=== PATIENT | female | born 1965 | race Hispanic/Latino ===

== ENCOUNTER → 2017-06-15 | Outpatient (CLI) | payer OTHER ==
--- NOTE | 2017-06-20 16:43 | REP ---
DIAGNOSTIC MAMMOGRAM LEFT BREAST WITH LEFT BREAST ULTRASOUND: Unilateral diagnostic mammogram left breast performed. Multiple images obtained in the MLO, ML and CC projections. There are reportedly two palpable abnormalities, one in the upper outer quadrant of the left breast and the other inferiorly in the region of 6-o'clock. They are marked on the skin with triangular skin markers. Spot compression views are performed. Comparison made with prior study of 09/27/2013 from [facility]. There is mild to moderate scattered fibroglandular tissue in the left breast. No discrete mass is seen mammographically. No clustered microcalcifications are seen. Real-time sonographic evaluation of the left breast performed in the region of the palpable abnormalities between 1-o'clock and 6-o'clock regions. There is scattered dense fibroglandular tissue. No cystic or solid nodule is seen in these two regions. In the left axilla there is an oval hyperechoic nodular areas measuring 9 x 6 x 11 mm, probably representing a focal small lipoma or lymph node. This appears benign. IMPRESSION: ACR 2 benign. No mass or clustered microcalcifications seen in the left breast. There is no mammographic or sonographic evidence of a mass at the site of the reported palpable abnormalities in the left breast, at two locations in the upper outer quadrant and inferiorly. Clinical correlation and followup is recommended. It should be noted the patient is also due for screening mammogram of the right breast. BI-RADS/ACR category 2 mammogram. Benign finding(s). Routine annual screening mammography (for women over age 40). This mammogram was interpreted with the aid of an FDA-approved computer-aided detection system. The patient states she/he had a clinical breast exam in May 2017. The patient letter being requested is M2. Signed by Percy Woodard MD 06/20/2017 05:10 P
== END ==
LOC: M RAD 14:56
PROVIDERS: ATTEND Family Medicine
DX: N63.0 Unspecified lump in unspecified breast (principal)

== ENCOUNTER 2017-12-25 17:25 | Emergency (ER) | payer OTHER ==
[2017-12-25] MEDS: LIDOCAINE 2% MDV 20 ML VIAL SC (21:15)
[2017-12-25] MEDS: ADACEL/BOOSTRIX VACCINE (DIPHTH/PERTUSS/ACELL/TETANUS)0.5ML SYR (90715) IM (21:30)
== END 2017-12-25 22:23 | disposition home or self-care (01) ==
LOC: M ED 17:25
DX: S61.315A Laceration without foreign body of left ring finger with damage to nail, initial encounter (principal); W22.8XXA Striking against or struck by other objects, initial encounter; Y92.002 Bathroom of unspecified non-institutional (private) residence as the place of occurrence of the external cause; E03.9 Hypothyroidism, unspecified; Z79.890 Hormone replacement therapy
CPT/HCPCS: 90715

== ENCOUNTER → 2020-01-06 | Outpatient (CLI) | payer OTHER ==
[~2020-01-06] MED LIST: AUGM500T34 PO; SYNT88TA2
--- NOTE | 2020-01-06 17:29 | REPMRS ---
Patient History The patient states she had a clinical breast exam in January 2019.Family history of endometrial cancer in paternal grandmother. Taking unspecified hormones for 23 years. 3D TOMOSYNTHESIS WAS PERFORMED. The J Carlos Daniels lifetime risk for breast cancer is 8.6%. SUSY Chanle. Digital Woman Screen Mammo: January 06, 2020 - Exam #: [id number] Bilateral CC and MLO view(s) were taken. Technologist: Brittany Arshad, Technologist Prior study comparison: June 15, 2017, left breast digital mammo diagnostic unilateral, performed at [facility]. FINDINGS: There are scattered fibroglandular densities. There has been no change in the appearance of the mammogram from the prior studies. There is a mild amount of residual fibroglandular tissue which is fairly symmetric. There is no interval development of dominant mass, architectural distortion, or clustered microcalcification suggestive of malignancy. Assessment: BI-RADS/ACR category 1 mammogram. Negative Mammogram. Recommendation Routine screening mammogram in 1 year (for women over age 40). This mammogram was interpreted with the aid of an FDA-approved computer-aided dectection system. Electronically Signed By: Percy Woodard MD 01/06/20 [id number]
== END ==
LOC: M WHC 14:56
PROVIDERS: ATTEND Family Medicine
DX: Z12.31 Encounter for screening mammogram for malignant neoplasm of breast (principal); Z80.49 Family history of malignant neoplasm of other genital organs

== ENCOUNTER 2020-03-02 09:00 | Day surgery (SDC) | payer OTHER ==
[2020-03-02] MEDS ORDERED: propofoL 500 MG/50 ML VIAL As Ordered ONE (09:55)
[2020-03-02] MEDS ORDERED: LIDOCAINE 2% 100MG/5ML SDV (FOR ANES.) As Ordered ONE (09:55)
--- NOTE | 2020-04-08 11:27 | ROOR ---
Patient Name: Cammie Wynn Procedure Date: 03/02/2020 9:55 AM Date of : 1965 Age: 54 Room: [facility] Gender: Female Note Status: Log Turner Override Procedure: Total Colonoscopy to Cecum Indications: Screening for colorectal malignant neoplasm Providers: Jethro Nava MD Referring MD: BRIAN TORRES MD Requesting Provider: Medicines: Monitored Anesthesia Care Complications: No immediate complications. Procedure: Pre-Anesthesia Assessment: - The heart rate, respiratory rate, oxygen saturations, blood pressure, adequacy of pulmonary ventilation, and response to care were monitored throughout the procedure. The Colonoscope was introduced through the anus and advanced to the cecum, identified by appendiceal orifice and ileocecal valve. The colonoscopy was performed without difficulty. The patient tolerated the procedure well. The quality of the bowel preparation was excellent. Findings: The perianal and digital rectal examinations were normal. Non-bleeding internal hemorrhoids were found during retroflexion. The hemorrhoids were small and Grade I (internal hemorrhoids that do not prolapse). No other significant abnormalities were identified in a careful examination of the remainder of the colon. The exam was otherwise without abnormality on direct and retroflexion views. Impression: - Non-bleeding internal hemorrhoids. - The examination was otherwise normal on direct and retroflexion views. - No specimens collected. - The exam was otherwise normal to the cecum. Recommendation: - Patient has a contact number available for emergencies. The signs and symptoms of potential delayed complications were discussed with the patient. Return to normal activities tomorrow. Written discharge instructions were provided to the patient. - High fiber diet. - Discharge patient to home. - Continue present medications. - Repeat colonoscopy in 10 years for screening purposes. - Return to referring physician. - The findings and recommendations were discussed with the patient. Jethro Nava MD Jethro Nava MD 03/02/2020 10:11:38 AM Number of Addenda: 0 Note Initiated On: 03/02/2020 9:55 AM Estimated Blood Loss: Estimated blood loss: none.
== END 2020-03-02 10:35 | disposition home or self-care (01) ==
LOC: M OPP 09:00
PROVIDERS: ATTEND Internal Medicine Gastroenterology
DX: Z12.11 Encounter for screening for malignant neoplasm of colon (principal); K64.0 First degree hemorrhoids; Z79.899 Other long term (current) drug therapy

== ENCOUNTER → 2020-11-04 | Outpatient (REF) | payer OTHER ==
[2020-11-04 17:22] LABS: BASO % 0.2 % (0.0-1.0); EOS # 0.3 10^3/uL (0.0-0.5); EOS % 3.1 % (0.0-3.0); HEMATOCRIT 45.8 % (36.0-47.0); HEMOGLOBIN 14.6 g/dl (12.0-15.5); LYMPH # 2.7 10^3/uL (1.5-5.0); LYMPH % 30.1 % (24.0-44.0); MEAN CORPUSCULAR HEMOGLOBIN 27.7 pg (27.0-33.0); MEAN CORPUSCULAR HGB CONC 31.9 g/dl (32.0-36.5); MEAN CORPUSCULAR VOLUME 86.9 fl (80.0-96.0); MONO # 0.5 10^3/uL (0.0-0.8); MONO % 5.4 % (2.0-8.0); NEUTROPHILS # 5.3 10^3/uL (1.5-8.5); NEUTROPHILS % 60.3 % (36.0-66.0); PLATELET COUNT, AUTOMATED 271 10^3/uL (150-450); RED BLOOD COUNT 5.27 10^6/uL (4.00-5.40); WHITE BLOOD COUNT 8.8 10^3/uL (4.0-10.0)
[2020-11-04 17:32] LABS: APPEARANCE, URINE CLEAR (CLEAR); BACTERIA, URINE AUTO NEGATIVE (NEGATIVE); BILIRUBIN, URINE AUTO NEGATIVE (NEGATIVE); BLOOD, URINE BLOOD 1+ (NEGATIVE); COLOR, URINE STRAW (YELLOW); GLUCOSE, URINE (UA) AUTO NEGATIVE (NEGATIVE); KETONE, URINE AUTO NEGATIVE (NEGATIVE); LEUKOCYTE ESTERASE, URINE AUTO NEGATIVE (NEGATIVE); NITRITE, URINE AUTO NEGATIVE (NEGATIVE); PROTEIN, URINE AUTO NEGATIVE (NEGATIVE); RBC, URINE AUTO 0 /HPF (0-3); SPECIFIC GRAVITY URINE AUTO 1.006 (1.002-1.035); SQUAMOUS EPITHELIAL CELL UR AU 0 /HPF (0-6); UROBILINOGEN, URINE AUTO 0.2 mg/dL (0.0-2.0); WBC, URINE AUTO 0 /HPF (0-3)
[2020-11-04 17:49] LABS: COMPLEMENT C3 158 MG/DL (90-180); COMPLEMENT C4 32 MG/DL (10-40)
[2020-11-04 17:53] LABS: CREATININE,RANDOM URINE 56.1 MG/DL; TOTAL PROTEIN,RANDOM URINE < 5.0 MG/DL (0.0-12.0)
[2020-11-04 17:57] LABS: ERYTHROCYTE SEDIMENTATION RATE 16 mm/hr (0-30)
[2020-11-05 12:31] LABS: DRVV SCREEN 42.2 SEC
== END ==
LOC: M SFHCRHEU 15:19
PROVIDERS: ATTEND Internal Medicine
DX: R76.8 Other specified abnormal immunological findings in serum (principal)

== ENCOUNTER → 2021-09-09 | Outpatient (CLI) | payer OTHER | LOC: M WHC 06:56 | PROVIDERS: ATTEND Family Medicine | DX: Z12.31 Encounter for screening mammogram for malignant neoplasm of breast (principal) ==

== ENCOUNTER → 2023-06-08 | Outpatient (CLI) | payer OTHER | LOC: M WHC 08:42 | PROVIDERS: ATTEND Family Medicine | DX: N63.14 Unspecified lump in the right breast, lower inner quadrant (principal) | CPT/HCPCS: 77066; G0279 ==

== ENCOUNTER → 2024-04-17 | Outpatient (CLI) | payer OTHER ==
[~2024-04-17] MED LIST changes: +GASTROGRAFIN SOLUTION 30ML ONE
== END ==
LOC: M PLAIMG 07:29
PROVIDERS: ATTEND Family Medicine
DX: R10.9 Unspecified abdominal pain (principal); K59.00 Constipation, unspecified
CPT/HCPCS: 74176; Q9963

== ENCOUNTER → 2024-06-11 | Outpatient (CLI) | payer OTHER ==
[~2024-06-11] MED LIST changes: -GASTROGRAFIN SOLUTION 30ML ONE
== END ==
LOC: M WHC 07:24
PROVIDERS: ATTEND Family Medicine
DX: Z12.31 Encounter for screening mammogram for malignant neoplasm of breast (principal)

== ENCOUNTER 2024-07-10 12:34 | Day surgery (SDC) | payer OTHER ==
[~2024-07-10] VITALS: Ht 157.5 cm; Wt 77.1 kg
[~2024-07-10 12:34] MED LIST changes: -SYNT88TA2; +SYNT88TA2 PO
[2024-07-10] MEDS ORDERED: propofoL 200 MG/20 ML VIAL As Ordered ONE (13:07)
[2024-07-10] MEDS ORDERED: LIDOCAINE 2% 100MG/5ML SDV (FOR ANES.) As Ordered ONE (13:07)
[2024-07-10 13:27] VITALS: TEMP 98.1
[2024-07-10 13:47] VITALS: BP 122/67; O2SAT 99
== END 2024-07-10 13:52 | disposition home or self-care (01) ==
LOC: M OPP 12:34
PROVIDERS: ATTEND Internal Medicine Gastroenterology
DX: R10.31 Right lower quadrant pain (principal); K64.0 First degree hemorrhoids; E03.9 Hypothyroidism, unspecified; Z79.899 Other long term (current) drug therapy

== ENCOUNTER → 2024-09-25 | Outpatient (CLI) | payer OTHER | LOC: M WUC 12:42 | PROVIDERS: ATTEND Student in an Organized Health Care Education/Training Program | DX: M79.671 Pain in right foot (principal); S92.354A Nondisplaced fracture of fifth metatarsal bone, right foot, initial encounter for closed fracture ==